=== PATIENT | female | born 2000 | race Hispanic/Latino ===

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

== ENCOUNTER 2020-12-15 08:19 | Emergency (ER) | payer MEDICAID ==
[~2020-12-15] VITALS: Ht 152.4 cm; Wt 68.9 kg
[2020-12-15 08:30] VITALS: BP 129/64
[2020-12-15 09:07] LABS: APPEARANCE,URINE Turbid (CLEAR); BILIRUBIN,URINE Negative (NEGATIVE); COLOR,URINE Yellow (YELLOW); GLUCOSE, URINE (UA) Negative (NEGATIVE); KETONES,URINE Negative (NEGATIVE); LEUKOCYTE ESTERASE ,URINE Large (NEGATIVE); NITRATE,URINE Negative (NEGATIVE); OCCULT BLOOD,URINE Large (NEGATIVE); PH,URINE 5.5 (5.0-8.0); PROTEIN,URINE POS 1+ mg/dL (NEGATIVE)
[2020-12-15 09:16] LABS: BACTERIA,URINE Rare /HPF (None Seen); RBC,URINE 26-50 /HPF (0-1); SQUAMOUS EPITHELIAL CELL,UR Few /HPF (0-2)
[2020-12-15] MEDS ORDERED: CEPH500B PO (09:39)
[2020-12-15] MEDS ORDERED: META800T72 PO (09:39)
== END 2020-12-15 09:49 | disposition home or self-care (01) ==
LOC: EDH 08:19
DX: S39.012A Strain of muscle, fascia and tendon of lower back, initial encounter (principal); N39.0 Urinary tract infection, site not specified; X58.XXXA Exposure to other specified factors, initial encounter; Y93.89 Activity, other specified; Y92.89 Other specified places as the place of occurrence of the external cause; Y99.8 Other external cause status
CPT/HCPCS: 72100; 81001; 87088

== ENCOUNTER 2022-03-23 14:15 | Inpatient (IN) | payer MEDICAID, OTHER ==
[~2022-03-23] VITALS: Ht 154.9 cm; Wt 93.0 kg
[~2022-03-23 14:15] MED LIST: CEPH500B PO; META800T72 PO
[2022-03-23 17:32] LABS: BASOPHILS % (AUTO) 0.3 % (0.0-5.0); EOSINOPHILS % (AUTO) 0.5 % (0.0-8.0); HEMATOCRIT 38.6 % (36-48); LYMPHOCYTES % (AUTO) 11.3 % (21.0-51.0); MEAN CORPUSCULAR HEMOGLOBIN 22.6 pg (27.0-33.0); MEAN CORPUSCULAR HGB CONC 30.8 g/dL (32.0-36.0); MEAN CORPUSCULAR VOLUME 73.2 fL (79-99); MONOCYTES % (AUTO) 7.7 % (3.0-13.0); NEUTROPHILS % (AUTO) 79.5 % (40.0-77.0); PLATELET COUNT (AUTO) 469 K/uL (130-400); RED BLOOD CELL COUNT(AUTO) 5.27 MIL/uL (4.00-5.50); RED CELL DISTRIBUTION WIDTH 17.4 % (11.0-15.5); WHITE BLOOD COUNT (AUTO) 18.3 K/uL (4.8-10.8)
[2022-03-23 17:41] LABS: CREATININE 0.8 mg/dL (0.5-1.5); POTASSIUM 3.7 mmol/L (3.5-5.1)
[2022-03-23 17:45] LABS: ALBUMIN 3.2 g/dL (3.5-5.0); TOTAL PROTEIN, SERUM 8.2 g/dL (6.0-8.3)
[2022-03-23 18:16] LABS: APPEARANCE,URINE CLOUDY (CLEAR); BILIRUBIN,URINE NEGATIVE (NEGATIVE); COLOR,URINE YELLOW (YELLOW); GLUCOSE, URINE (UA) NEGATIVE (NEGATIVE); KETONES,URINE 10 mg/dL (NEGATIVE); LEUKOCYTE ESTERASE ,URINE 25 Leu/uL (NEGATIVE); NITRATE,URINE NEGATIVE (NEGATIVE); OCCULT BLOOD,URINE NEGATIVE (NEGATIVE); PROTEIN,URINE 50 mg/dL (NEGATIVE)
[2022-03-23 18:31] LABS: HCG,QUALITATIVE URINE NEGATIVE (NEGATIVE)
[2022-03-23 18:35] LABS: BACTERIA,URINE MOD /HPF (None Seen); MUCUS,URINE FEW LPF (None Seen); OTHER CASTS, URINE 1 /LPF (None Seen); SQUAMOUS EPITHELIAL CELL,UR MANY /HPF (0-2)
[2022-03-23] MEDS ORDERED: ZOSYN 3.375GM +NS 50ML IVPB ONE (20:30)
[2022-03-24] MEDS ORDERED: ACETAMINOPHEN 325 MG TAB PO PRN ×2
[2022-03-24] MEDS: 0.9%NACL 1000ML 1,000 ML IV SCH ×3 (00:46→20:17)
[2022-03-24 05:05] VITALS: BP 113/58
[2022-03-24] MEDS: ZOSYN 3.375GM+NS 50ML 50 ML IVPB SCH ×3 (05:14→20:17)
[2022-03-24 07:20] LABS: HEMATOCRIT 30.2 % (36-48); MEAN CORPUSCULAR HGB CONC 30.8 g/dL (32.0-36.0); MEAN CORPUSCULAR VOLUME 74.6 fL (79-99); PLATELET COUNT (AUTO) 368 K/uL (130-400); RED BLOOD CELL COUNT(AUTO) 4.05 MIL/uL (4.00-5.50); RED CELL DISTRIBUTION WIDTH 17.2 % (11.0-15.5); WHITE BLOOD COUNT (AUTO) 12.2 K/uL (4.8-10.8)
[2022-03-24 08:00] VITALS: BP 106/47
[2022-03-24 08:03] LABS: EOSINOPHILS % (MANUAL) 3 % (1-6); LYMPHOCYTES % (MANUAL) 13 % (22-44); MAN.DIFF COMMENT-IMPRESSION MANUAL DIFFERENTIAL; MONOCYTES % (MANUAL) 3 % (2-9); PLATELET MORPHOLOGY COMMENT ADEQUATE; SEGMENTED NEUTROPHILS % 81 % (40-70)
[2022-03-24] MEDS ORDERED: MAGNESIUM 2GM PREMIX 50ML 50 ML IV PRN (09:00)
[2022-03-24] MEDS ORDERED: DIPHENHYDRAMINE HCL 25 MG CAPSULE PO PRN (09:00)
[2022-03-24] MEDS ORDERED: POTASSIUM CHLORIDE 20MEQ/100ML 100 ML IV PRN (09:00)
[2022-03-24] MEDS ORDERED: ONDANSETRON 4MG INJ IV PRN ×2 (09:00)
[2022-03-24] MEDS ORDERED: DiphenhydrAMINE HCL 50 MG/ML VIAL IV PRN (09:00)
[2022-03-24] MEDS ORDERED: HYDROCODONE/ACETAMINOPHEN 5/325 MG TAB PO PRN ×2 (09:00)
[2022-03-24] MEDS ORDERED: LACTULOSE 20 GM/30 ML UDCUP PO PRN (09:00)
[2022-03-24] MEDS ORDERED: MAG/ALUM/SIMETH 30 ML UDCUP PO PRN (09:00)
[2022-03-24] MEDS ORDERED: GUAIFENESIN-DM 200/20 MG 10 ML PO PRN (09:00)
[2022-03-24] MEDS: FAMOTIDINE 20MG VIAL IV SCH ×4 (09:00→20:17)
[2022-03-24] MEDS ORDERED: KCL 20 MEQ ERTAB PO PRN (09:00)
[2022-03-24] MEDS ORDERED: NITROGLYCERIN 0.4 MG SL TAB SL PRN (09:00)
[2022-03-24] MEDS ORDERED: LIDOCAINE HCL-MPF 1% 2ML VIAL IV PRN (09:00)
[2022-03-24] MEDS ORDERED: POTASSIUM CHLORIDE 10% ELIXIR 20 MEQ/15 ML UDCUP PO PRN (09:00)
[2022-03-24] MEDS ORDERED: HYDROMORPHONE 1 MG INJ IV PRN (09:00)
[2022-03-24] MEDS: ENOXAPARIN SODIUM 40 MG/0.4 ML SYRINGE SQ SCH (09:44)
[2022-03-24] MEDS: FAMOTIDINE 20MG TAB PO SCH ×2 (09:44→19:38)
[2022-03-24 11:37] VITALS: BP 114/50
[2022-03-24 16:00] VITALS: BP 111/49
[2022-03-24 20:00] VITALS: BP 111/57
[2022-03-25] VITALS: BP 111/77
[2022-03-25 04:00] VITALS: BP 103/52
[2022-03-25] MEDS: ZOSYN 3.375GM+NS 50ML 50 ML IVPB SCH ×2 (04:28→13:55)
[2022-03-25] MEDS: 0.9%NACL 1000ML 1,000 ML IV SCH ×2 (04:28→15:39)
[2022-03-25 06:16] LABS: BASOPHILS % (AUTO) 0.2 % (0.0-5.0); EOSINOPHILS % (AUTO) 2.6 % (0.0-8.0); HEMATOCRIT 34.6 % (36-48); LYMPHOCYTES % (AUTO) 19.8 % (21.0-51.0); MEAN CORPUSCULAR HEMOGLOBIN 22.5 pg (27.0-33.0); MEAN CORPUSCULAR HGB CONC 30.6 g/dL (32.0-36.0); MEAN CORPUSCULAR VOLUME 73.3 fL (79-99); MONOCYTES % (AUTO) 6.7 % (3.0-13.0); NEUTROPHILS % (AUTO) 70.1 % (40.0-77.0); PLATELET COUNT (AUTO) 532 K/uL (130-400); RED BLOOD CELL COUNT(AUTO) 4.72 MIL/uL (4.00-5.50); RED CELL DISTRIBUTION WIDTH 17.4 % (11.0-15.5); WHITE BLOOD COUNT (AUTO) 9.9 K/uL (4.8-10.8)
[2022-03-25 06:33] LABS: CREATININE 0.6 mg/dL (0.5-1.5); MAGNESIUM 2.1 mg/dL (1.80-2.40); PHOSPHORUS 3.4 mg/dL (2.5-4.9); POTASSIUM 3.6 mmol/L (3.5-5.1)
[2022-03-25 08:00] VITALS: BP 113/40
[2022-03-25] MEDS: FAMOTIDINE 20MG VIAL IV SCH ×2 (08:44→08:45)
[2022-03-25] MEDS: FAMOTIDINE 20MG TAB PO SCH (08:44)
[2022-03-25] MEDS: ENOXAPARIN SODIUM 40 MG/0.4 ML SYRINGE SQ SCH (08:45)
[2022-03-25 12:00] VITALS: BP 112/61
[2022-03-25] MEDS ORDERED: METR-172 PO (18:13)
[2022-03-25] MEDS ORDERED: LEVO750T39 PO (18:13)
== END 2022-03-25 18:50 | disposition home or self-care (01) | DRG 254 ==
LOC: EDH 14:15 → EDHIP 14:16 → 3CH 03-24 05:06
PROVIDERS: ADMIT Hospitalist; ATTEND Hospitalist
DX: K35.80 Unspecified acute appendicitis (principal); K50.00 Crohn's disease of small intestine without complications; N39.0 Urinary tract infection, site not specified
CPT/HCPCS: 36415; 74176; 80048; 80053; 81001; 81025; 83540; 83550; 83690; 83735; 84100; 85025; 87040; 87088; G0378; J1650; J2543; J3490; J7030

== ENCOUNTER 2023-06-25 22:36 | Emergency (ER) | payer MEDICAID, OTHER ==
[~2023-06-25] VITALS: Ht 154.9 cm; Wt 99.3 kg
[~2023-06-25 22:36] MED LIST changes: -CEPH500B PO; +LEVO750T39 PO; -META800T72 PO; +METR-172 PO
[2023-06-25] MEDS: ONDANSETRON 4MG INJ IVP ONE (23:42)
[2023-06-25] MEDS: PANTOPRAZOLE 40 MG/VIAL IVP ONE (23:42)
[2023-06-25] MEDS: 0.9%NACL 1000ML 1,000 ML IV ONE (23:42)
[2023-06-26 00:31] LABS: CREATININE 0.8 mg/dL (0.5-1.0); POTASSIUM 3.8 mmol/L (3.5-5.1)
[2023-06-26 00:37] LABS: ALBUMIN 3.8 g/dL (3.5-5.0); BILIRUBIN,TOTAL 0.4 mg/dL (0.2-1.0); TOTAL PROTEIN, SERUM 7.9 g/dL (6.0-8.3)
[2023-06-26 00:38] LABS: BASOPHILS # (AUTO) 0.05 K/uL (0.00-0.20); BASOPHILS % (AUTO) 0.4 % (0.0-5.0); EOSINOPHILS # (AUTO) 0.11 K/uL (0.00-0.70); EOSINOPHILS % (AUTO) 0.8 % (0.0-8.0); HEMATOCRIT 43.4 % (36-48); IMMATURE GRANULOCYTE ABSOLUTE 0.08 K/uL (0-1); LYMPHOCYTES # (AUTO) 2.5 K/uL (1.0-4.8); LYMPHOCYTES % (AUTO) 17.7 % (21.0-51.0); MEAN CORPUSCULAR HEMOGLOBIN 27.7 pg (27.0-33.0); MEAN CORPUSCULAR HGB CONC 32.9 g/dL (32.0-36.0); MEAN CORPUSCULAR VOLUME 83.9 fL (79-99); MONOCYTES # (AUTO) 0.8 K/uL (0.1-1.0); NEUTROPHILS # (AUTO) 10.4 K/uL (1.8-7.7); NEUTROPHILS % (AUTO) 74.5 % (40.0-77.0); PLATELET COUNT (AUTO) 479 K/uL (130-400); RED BLOOD CELL COUNT(AUTO) 5.17 MIL/uL (4.00-5.50); RED CELL DISTRIBUTION WIDTH 13.9 % (11.0-15.5)
[2023-06-26 02:33] LABS: APPEARANCE,URINE CLOUDY (CLEAR); BILIRUBIN,URINE NEGATIVE (NEGATIVE); COLOR,URINE YELLOW (YELLOW); GLUCOSE, URINE (UA) NEGATIVE (NEGATIVE); KETONES,URINE NEGATIVE (NEGATIVE); LEUKOCYTE ESTERASE ,URINE NEGATIVE Leu/uL (NEGATIVE); NITRATE,URINE NEGATIVE (NEGATIVE); OCCULT BLOOD,URINE MODERATE (NEGATIVE); PH,URINE 5.5 (5.0-8.0); PROTEIN,URINE 20 mg/dL (NEGATIVE); UROBILINOGEN,URINE 0.2 mg/dL (0.2-1.0)
[2023-06-26 02:35] LABS: HCG,QUALITATIVE URINE NEGATIVE (NEGATIVE)
[2023-06-26 02:36] LABS: ADD UA MICROSCOPIC YES
[2023-06-26 02:37] LABS: BACTERIA,URINE RARE /HPF (None Seen); MUCUS,URINE FEW LPF (None Seen); SQUAMOUS EPITHELIAL CELL,UR MOD /HPF (0-2)
[2023-06-26] MEDS ORDERED: AMOX1TAB16 PO (03:17)
[2023-06-26 03:49] VITALS: BP 124/76; PULSE 72; RESP 18; O2SAT 99
== END 2023-06-26 03:51 | disposition home or self-care (01) ==
LOC: EDH 22:36
DX: K80.20 Calculus of gallbladder without cholecystitis without obstruction (principal); J32.9 Chronic sinusitis, unspecified; R11.0 Nausea; D72.829 Elevated white blood cell count, unspecified
CPT/HCPCS: 99285; 96374; 96375; 80053; 83690; 81001; 81025; 36415 ×2; 76705; J7030 ×2; J2405 ×2; C9113 ×2; 85025

== ENCOUNTER 2024-03-08 14:30 | Emergency (ER) | payer SELFPAY ==
[~2024-03-08] VITALS: Ht 154.9 cm; Wt 98.9 kg
[~2024-03-08 14:30] MED LIST changes: +AMOX1TAB16 PO; -LEVO750T39 PO; +LEVO750T40 PO
--- NOTE | 2024-03-08 14:38 | NUR ---
SEEN BY COLT CANALES BORING MACHINE OPERATOR AT TRIAGE
--- NOTE | 2024-03-08 14:45 | ERN ---
ED Note History of Present Illness Stated Complaint: VOMITTING,BODY ACHES,DIZZY, DIARRHEA Chief Complaint: Syncope Time Seen by MD: 14:33 Dictation: PATIENT IS A 24-YEAR-OLD FEMALE COMING IN TODAY WITH COMPLAINTS OF NAUSEA AND VOMITING ONSET AT 08:00 O'CLOCK THIS MORNING SHE ALSO STATES WHILE SHE WAS VOMITING, SHE GOT DIZZY FELL AND HER UNCLE PICKED HER UP AND BROUGHT HER TO THE EMERGENCY ROOM. SHE HAS NOT HAVE ANY CHEST PAIN, HEADACHE. SHE STATES SHE IS HAVING SOME LEFT SHOULDER PAIN. SHE HAS NO ABDOMINAL PAIN AT THIS TIME STATES SHE HAS NO PRIMARY CARE DOCTOR. Allergies: Coded Allergies: No Known Allergies (Unverified Allergy, Unknown, 03/23/22) Home Meds Active Scripts Ibuprofen (Ibuprofen 800 mg Tab) 800 Mg Tab, 800 MG PO Q8H PRN for fever or pain, #30 TAB 0 Refills Prov:COLT MORAN NP 03/08/24 Ondansetron (Ondansetron Odt) 4 Mg Tab.rapdis, 4 MG PO Q6HPRN PRN for nausea, #16 TAB 0 Refills Prov:COLT MORAN NP 03/08/24 Dicyclomine HCl (Bentyl) 20 Mg Tab, 20 MG PO Q6HPRN PRN for Abdominal cramping, #20 TAB Prov:COLT MORAN NP 03/08/24 Amoxicillin/Potassium Clav (Amox Tr-K Clv 875-125 mg Tab) 875 Mg-125 Mg Tablet, 1 EACH PO BID for 5 Days, #10 TAB 0 Refills Prov:SIVAN HAYS MD 06/26/23 Metronidazole (Metronidazole) 500 Mg Tablet, 500 MG PO TID for 7 Days, #21 TAB 0 Refills Prov:IESHA YO MD 03/25/22 Levofloxacin (Levofloxacin) 750 Mg Tablet, 750 MG PO DAILY, #7 TAB 0 Refills Prov:IESHA YO MD 03/25/22 Past Medical History Past Medical History: No Pertinent History Surgical History: Social History: Other History: Not Applicable RN Note Reviewed/Agreed w/PFSH: Yes Review of System Dictation CONSTITUTIONAL: NEGATIVE EXCEPT FOR HPI HEAD/FACE: NEGATIVE EXCEPT FOR HPI EENT: NEGATIVE EXCEPT FOR HPI RESPIRATORY: NEGATIVE EXCEPT FOR HPI GASTROINTESTINAL/ABDOMINAL: NEGATIVE EXCEPT FOR HPI NAUSEA VOMITING AND DIARRHEA GENITOURINARY: NEGATIVE EXCEPT FOR HPI MUSCULOSKELETAL: NEGATIVE EXCEPT FOR HPI INTEGUMENTARY: NEGATIVE EXCEPT FOR HPI NEUROLOGICAL/PSYCH: NEGATIVE EXCEPT FOR HPI NEAR-SYNCOPE HEMATOLOGIC/LYMPHATIC: NEGATIVE EXCEPT FOR HPI ALL SYSTEMS NEGATIVE, EXCEPT NOTED ABOVE. 13 POINT REVIEW OF SYSTEMS ASSESSED AND ALL NEGATIVE EXCEPT FOR ABOVE. Initial Vital Sign VS Vital Signs Date Time Temp Pulse Resp B/P (MAP) Pulse Ox O2 Delivery O2 Flow Rate FiO2 03/08/24 14:34 98.2 89 18 113/71 98 Room Air 03/08/24 22:11 0 21 Physical Exam Dictation VITAL SIGNS REVIEWED GENERAL APPEARANCE: ALERT, ORIENTED X 3, MILD ACUTE DISTRESS, WELL DEVELOPED, NOURISHED. HEAD AND FACE: NON-TRAUMATIC. EYES: PERRL, PINK CONJUNCTIVAS, EYELID NO TRAUMA, ANTERIOR CHAMBER WITH ARCUS SENILIS. EARS: PINNAS INTACT AND NO SIGNS OF TRAUMA OR ERYTHEMA EAR CANALS CLEAR AND NO DISCHARGE TM NO ERYTHEMA NOSE: NO DISCHARGE, NO BLEEDING. OROPHARYNX: MOUTH NORMAL, TONGUE PINK, PHARYNX CLEAR,NO ERYTHEMA, TONSILS NO EXUDATES, NO ABSCESSES NOTED, MUCOUS MEMBRANE MOIST NECK: SUPPLE, NON-TENDER, NO THYROMEGALY, NO MASSES, NO JVD, NO BRUITS BREAST:DEFERRED CHEST:NO TENDERNESS, NO CREPITUS, NO PARADOXICAL MOVEMENT, NO RETRACTIONS LUNGS:CLEAR, WELL-VENTILATED, SYMMETRIC, NO RALES, NO WHEEZING, NO RHONCHI, NO STRIDOR, GOOD BREATH SOUNDS BILATERALLY HEART: REGULAR RATE, REGULAR RHYTHM, NO MURMUR, NO GALLOPS VASCULAR: NO PERIPHERAL EDEMA, ABDOMEN: SOFT, POSITIVE BOWEL SOUNDS, NONDISTENDED, NO GUARDING, NONTENDER, NO REBOUND, NO MASSES NO HEPATOMEGALY, NO SPLENOMEGALY, NO PEREZ'S SIGN, NO HERNIAS. RECTAL: DEFERRED GENITAL: DEFERRED NEUROLOGICAL: NORMAL SPEECH, MOTOR FUNCTION INTACT, SENSORY FUNCTION INTACT MUSCULOSKELETAL: NECK NONTENDER, FULL RANGE OF MOTION, BACK NONTENDER, FULL RANGE OF MOTION, EXTREMITIES: LEFT ANTERIOR SHOULDER PAIN TENDERNESS WITH A ECCHYMOSIS. DECREASED RANGE OF MOTION SECONDARY TO PAIN SKIN: COLOR PINK, DRY, NO TURGOR, NO RASH, NO LACERATIONS, NO ABRASIONS, NO CONTUSIONS. LYMPHATIC: DEFERRED Results (Laboratory/Radiology) Laboratory/Radiology Laboratory Tests Test 03/08/24 14:52 03/08/24 22:10 White Blood Count 23.4 K/uL (4.8-10.8) H Red Blood Count 5.34 MIL/uL (4.00-5.50) Hemoglobin 14.9 g/dL (12.0-16.0) Hematocrit 46.2 % (36-48) Mean Corpuscular Volume 86.5 fL (79-99) Mean Corpuscular Hemoglobin 27.9 pg (27.0-33.0) Mean Corpuscular Hemoglobin Concent 32.3 g/dL (32.0-36.0) Red Cell Distribution Width 14.1 % (11.0-15.5) Platelet Count 534 K/uL (130-400) H Mean Platelet Volume 8.2 fL (7.5-10.5) Immature Granulocyte % (Auto) 0.6 % (0-1) Neutrophils (%) (Auto) 90.1 % (40.0-77.0) H Lymphocytes (%) (Auto) 5.1 % (21.0-51.0) L Monocytes (%) (Auto) 3.8 % (3.0-13.0) Eosinophils (%) (Auto) 0.1 % (0.0-8.0) Basophils (%) (Auto) 0.3 % (0.0-5.0) Neutrophils # (Auto) 21.1 K/uL (1.8-7.7) H Lymphocytes # (Auto) 1.2 K/uL (1.0-4.8) Monocytes # (Auto) 0.9 K/uL (0.1-1.0) Eosinophils # (Auto) 0.02 K/uL (0.00-0.70) Basophils # (Auto) 0.07 K/uL (0.00-0.20) Absolute Immature Granulocyte (auto 0.13 K/uL (0-1) Nucleated Red Blood Cells 0.0 % (0.0-0.19) White Cell Morphology Comment See comments Sodium Level 142 mmol/L (136-145) Potassium Level 4.3 mmol/L (3.5-5.1) Chloride Level 105 mmol/L (101-111) Carbon Dioxide Level 32 mmol/L (21-32) Blood Urea Nitrogen 12 mg/dL (7-18) Creatinine 0.9 mg/dL (0.5-1.0) Glomerular Filtration Rate Calc 91 mL/min (>90) Random Glucose 117 mg/dL (70-105) H Total Calcium 9.1 mg/dL (8.5-10.1) Troponin I High Sensitivity < 4 ng/L (4-50) L Lipase 21 U/L (16-77) Serum Test, Qualitative NEGATIVE (NEGATIVE) Urine Color YELLOW (YELLOW) Urine Appearance CLOUDY (CLEAR) H Urine pH 5.5 (5.0-8.0) Urine Specific [place] 1.028 (1.001-1.031) Urine Protein 10 mg/dL (NEGATIVE) H Urine Glucose (UA) NEGATIVE mg/dL (NEGATIVE) Urine Ketones NEGATIVE mg/dL (NEGATIVE) Urine Occult Blood SMALL (NEGATIVE) H Urine Nitrate NEGATIVE (NEGATIVE) Urine Bilirubin NEGATIVE mg/dL (NEGATIVE) Urine Urobilinogen 0.2 mg/dL (0.2-1.0) Urine Leukocyte Esterase 250 Angela/uL (NEGATIVE) H Urine RBC 6-10 /HPF (0-1) H Urine WBC 26-50 /HPF (0-1) H Urine Squamous Epithelial Cells MANY /HPF (0-2) Urine Bacteria RARE /HPF (None Seen) LEFT SHOULDER RADIOGRAPHS - 2-3 VIEWS INDICATION: Pain COMPARISON: None FINDINGS: No evidence for acute fracture or dislocation. Acromioclavicular and glenohumeral alignments are well maintained. Visible portions of the left clavicle are intact. IMPRESSION: No evidence for fracture or dislocation. Labs Reviewed?: Yes EKG: (+) NSR EKG Comment: EKG NORMAL SINUS RHYTHM/HEART RATE 83/AXIS NORMAL/NO ECTOPY ED Course ED Course Orders Procedure Category Date Status Time Testing, LAB 03/08/24 Complete Serum Hcg 14:42 Cbc With Differential LAB 03/08/24 Complete 14:42 Troponin I High LAB 03/08/24 Complete Sensitivity 14:42 Urinalysis Profile LAB 03/08/24 Complete 14:42 12 Lead Ekg Tracing- EKG 03/08/24 Resulted Technical 14:42 0.9%Nacl 1000ml (Ns PHA 03/08/24 Complete 1000ml) 15:00 Ondansetron 4mg Inj PHA 03/08/24 Complete (Zofran 4mg Inj) 15:00 Lipase LAB 03/08/24 Complete 14:42 Basic Metabolic Panel LAB 03/08/24 Complete 14:42 Shoulder Comp 2+Vws Lt RAD 03/08/24 Resulted 15:32 Culture Urine KRUPA 03/08/24 In Process 22:27 Current Medications Medications (Trade) Dose Ordered Sig/Christian Route PRN Reason Start Time Stop Time Status Last Admin Dose Admin Ondansetron HCl (zoFRAN 4MG INJ) 4 mg ONCE ONCE IVP 03/08/24 15:00 03/08/24 15:01 DC Sodium Chloride 1,000 ml @ 0 mls/hr ONCE ONCE IV 03/08/24 15:00 03/08/24 15:01 DC Vital Signs Date Time Temp Pulse Resp B/P (MAP) Pulse Ox O2 Delivery O2 Flow Rate FiO2 03/08/24 22:11 98.2 85 16 115/70 98 Room Air* 0 21 03/08/24 14:34 98.2 89 18 113/71 98 Room Air 2030 patient will be discharged home after fluids and antiemetics patient will be treated for viral gastroenteritis, believe that the leukocytosis is reactive. No abdominal pain. HEART Score Response (Comments) Value History: Low suspicion (0) 0 EKG: Normal 0 Age: < 45yrs (0) 0 Risk Factors: No known risk factors (0) 0 Initial Troponin: Normal limit (0) 0 Total 0 Medical Decision Making MDM MDM: Differential diagnosis: ACS/AMI/electrolyte imbalance/dehydration/syncope lash shoulder contusion/fracture/gastroenteritis Rationale: Tests considered and ordered secondary to shared decision making include: Radiology/labs/EKG Previous outside records reviewed: Old ER visits. Risk of complication and/or morbidity or mortality of patient management: None Medications-Per medication reconciliation Need for hospitalization: Patient does not meet criteria for hospitalization. No Need for emergency major/minor surgery: No There are no social concerns with this patient. Prescription drug management Zofran/Bentyl Prescriptions will include symptomatic care Patient's prior external medical records from other ER visits were reviewed by me as indicated. Prior testing and results from previous visits were reviewed. Prior tests were taken into account with medical decision making and resource utilization, independent historian/historians were used to obtain complete medical history. I independently interpreted the test that were performed, results were reviewed by me and considered findings on radiology if ordered. Medical management and examination interpretation discussions were had by me with other qualified healthcare professionals as indicated for the patient's care. DX & DISP Disposition: Discharge Departure Impression: Primary Impression: Viral gastroenteritis Additional Impressions: Nausea & vomiting, Contusion of left shoulder, initial encounter, Vasovagal syncope Condition: Stable Scripts Ibuprofen (Ibuprofen 800 mg Tab) 800 Mg Tab 800 MG PO Q8H PRN for fever or pain, #30 TAB 0 Refills Prov: COLT MORAN LEAD ACCOUNTANT 03/08/24 Ondansetron (Ondansetron Odt) 4 Mg Tab.rapdis 4 MG PO Q6HPRN PRN for nausea, #16 TAB 0 Refills Prov: COLT MORAN LEAD ACCOUNTANT 03/08/24 Dicyclomine HCl (Bentyl) 20 Mg Tab 20 MG PO Q6HPRN PRN for Abdominal cramping, #20 TAB Prov: COLT MORAN LEAD ACCOUNTANT 03/08/24 Additional Instructions: Follow-up with primary care provider in 1 to 2 days. Take medications as directed here in the emergency room. Okay to continue home medications unless otherwise discussed during your visit in the emergency room today. Return to your nearest emergency room if symptoms worsen or if there is no improvement. Call 911 if you need immediate assistance. Take Tylenol or Motrin [id number] as needed and if no contraindications are present. Increase oral hydration. A wound culture or urine culture was ordered here in the emergency room department please follow-up with primary care provider and advise them to get repeat ports from our facility. If you had any Kel wrap/splints that were applied here, please do not remove them until you see your primary care or specialty. Cool compresses to left shoulder three to 4 times a day. Suggest sips of Gatorade or Powerade every 20 minutes while awake. Take Bentyl and Zofran as directed for cramping and/or vomiting. Follow up with your primary care doctor in 1-2 days. No solid foods until tomorrow afternoon. Referrals: KARY RAYMUNDO MD (PCP) Time of Disposition: 20:35 I have reviewed the case, and I agree with, Diagnosis and Plan I performed the substantive portion of the visit. I have reviewed and personally made and approve the management plan that is documented in the notes by myself or the OMA. I acknowledge full responsibility for the patient's management plan. COLT MORAN NP Mar 08, 2024 14:45 SOWMYA BOB MD Mar 09, 2024 16:58
[2024-03-08] MEDS: ondanSETRON 4MG INJ IVP ONE (15:00)
[2024-03-08] MEDS: 0.9%NACL 1000ML 1,000 ML IV ONE (15:00)
[2024-03-08 15:03] LABS: BASOPHILS # (AUTO) 0.07 K/uL (0.00-0.20); BASOPHILS % (AUTO) 0.3 % (0.0-5.0); EOSINOPHILS # (AUTO) 0.02 K/uL (0.00-0.70); EOSINOPHILS % (AUTO) 0.1 % (0.0-8.0); HEMATOCRIT 46.2 % (36-48); IMMATURE GRANULOCYTE ABSOLUTE 0.13 K/uL (0-1); LYMPHOCYTES # (AUTO) 1.2 K/uL (1.0-4.8); LYMPHOCYTES % (AUTO) 5.1 % (21.0-51.0); MEAN CORPUSCULAR HEMOGLOBIN 27.9 pg (27.0-33.0); MEAN CORPUSCULAR HGB CONC 32.3 g/dL (32.0-36.0); MEAN CORPUSCULAR VOLUME 86.5 fL (79-99); MONOCYTES # (AUTO) 0.9 K/uL (0.1-1.0); MONOCYTES % (AUTO) 3.8 % (3.0-13.0); NEUTROPHILS # (AUTO) 21.1 K/uL (1.8-7.7); NEUTROPHILS % (AUTO) 90.1 % (40.0-77.0); PLATELET COUNT (AUTO) 534 K/uL (130-400); RED BLOOD CELL COUNT(AUTO) 5.34 MIL/uL (4.00-5.50); RED CELL DISTRIBUTION WIDTH 14.1 % (11.0-15.5); WHITE BLOOD COUNT (AUTO) 23.4 K/uL (4.8-10.8)
[2024-03-08 15:31] LABS: CREATININE 0.9 mg/dL (0.5-1.0); POTASSIUM 4.3 mmol/L (3.5-5.1)
--- NOTE | 2024-03-08 16:16 | HMCIMG ---
LEFT SHOULDER RADIOGRAPHS - 2-3 VIEWS INDICATION: Pain COMPARISON: None FINDINGS: No evidence for acute fracture or dislocation. Acromioclavicular and glenohumeral alignments are well maintained. Visible portions of the left clavicle are intact. IMPRESSION: No evidence for fracture or dislocation.
--- NOTE | 2024-03-08 16:57 | EKG ---
[facility] Test Date: 2024-03-08 Test Time: 15:22:08 Pat Name: LEIGHTON HOUSTON Department: ED Room: Gender: F Regional Director: [id number] : 2000 Requested By: COLT MORAN Order Number: [id number] Reading MD: Sherry Stewart Measurements Intervals [place] Rate: 83 P: 6 MS: 124 QRS: 8 QRSD: 88 T: 8 QT: 370 QTc: 435 Interpretive Statements Sinus rhythm No previous ECG available for comparison Electronically Signed On 03-09-2024 16:08:23 ASSURANCE MANAGER by Sherry Stewart Please click the below link to view image of tracing.
[2024-03-08] MEDS ORDERED: DICY20TA2 PO (20:37)
[2024-03-08] MEDS ORDERED: IBUP-2077 PO (20:37)
[2024-03-08] MEDS ORDERED: ONDA-243 PO (20:37)
[2024-03-08 22:11] VITALS: BP 115/70; PULSE 85; RESP 16; TEMP 98.3; O2SAT 98
--- NOTE | 2024-03-08 22:17 | NUR ---
PT [id number] IN FT AT 2150
--- NOTE | 2024-03-08 22:20 | NUR ---
PT REFUSED MEDICATION AND CHOOSED TO USE RX PROVIDED FOR HOME NO NAUSEA OR VISABLE DISTRESS AT THIS TIME
[2024-03-08 22:24] LABS: APPEARANCE,URINE CLOUDY (CLEAR); BILIRUBIN,URINE NEGATIVE (NEGATIVE); COLOR,URINE YELLOW (YELLOW); GLUCOSE, URINE (UA) NEGATIVE (NEGATIVE); KETONES,URINE NEGATIVE (NEGATIVE); LEUKOCYTE ESTERASE ,URINE 250 Leu/uL (NEGATIVE); NITRATE,URINE NEGATIVE (NEGATIVE); OCCULT BLOOD,URINE SMALL (NEGATIVE); PH,URINE 5.5 (5.0-8.0); PROTEIN,URINE 10 mg/dL (NEGATIVE); UROBILINOGEN,URINE 0.2 mg/dL (0.2-1.0)
[2024-03-08 22:26] LABS: ADD UA MICROSCOPIC YES
[2024-03-08 22:29] LABS: BACTERIA,URINE RARE /HPF (None Seen); MUCUS,URINE RARE LPF (None Seen); SQUAMOUS EPITHELIAL CELL,UR MANY /HPF (0-2); WBC,URINE 26-50 /HPF (0-1)
== END 2024-03-08 22:25 | disposition home or self-care (01) ==
LOC: EDH 14:30
DX: A08.4 Viral intestinal infection, unspecified (principal); S40.012A Contusion of left shoulder, initial encounter; R55 Syncope and collapse; Z79.899 Other long term (current) drug therapy; Z98.890 Other specified postprocedural states; W18.39XA Other fall on same level, initial encounter; Y93.89 Activity, other specified; Y92.89 Other specified places as the place of occurrence of the external cause; Y99.8 Other external cause status
CPT/HCPCS: 36415; 73030; 80048; 81001; 83690; 84484; 84703; 85025; 87086; 93005; 99285

== ENCOUNTER 2024-08-13 23:06 | Emergency (ER) | payer BC ==
[~2024-08-13] VITALS: Ht 154.9 cm; Wt 94.3 kg
[~2024-08-13 23:06] MED LIST changes: +DICY20TA2 PO; +IBUP-2077 PO; -LEVO750T40 PO; +LEVO750T90 PO; +ONDA-243 PO
--- NOTE | 2024-08-13 23:50 | HMCIMG ---
EXAM: CR right ankle, 3 View. CLINICAL HISTORY: fall COMPARISON: None provided. FINDINGS: BONES: No acute fracture or aggressive appearing osseous lesion. JOINTS: The joint spaces appear within normal limits. No dislocation. Small ankle joint effusion. SOFT TISSUES: Mild soft tissue edema at the lateral malleolus. IMPRESSION: 1. No acute osseous injury. 2. Small ankle joint effusion with mild lateral malleolar soft tissue edema. /[place]
--- NOTE | 2024-08-13 23:51 | HMCIMG ---
EXAM: CR right foot, 4 View. CLINICAL HISTORY: fall COMPARISON: None provided. FINDINGS: BONES: No acute fracture or aggressive appearing osseous lesion. JOINTS: The joint spaces appear within normal limits. No dislocation. SOFT TISSUES: The soft tissues are unremarkable. IMPRESSION: No acute osseous abnormality. /[place]
--- NOTE | 2024-08-14 00:30 | ERN ---
General Chief Complaint: Ankle Problem Stated Complaint: C/O PAIN TO RIGHT ANKLE/FOOT AFTER FALL Time Seen by MD: 23:15 Time Seen by Midlevel: 23:15 Source: patient History of Present Illness Initial Comments The patient is a 24-year-old female presenting to the emergency department with right foot/ankle pain after falling. Denies any other symptoms or injury Allergies: Coded Allergies: No Known Allergies (Unverified Allergy, Unknown, 03/23/22) Home Meds Active Scripts Ibuprofen (Ibuprofen 800 mg Tab) 800 Mg Tab, 800 MG PO Q8H PRN for fever or pain, #30 TAB 0 Refills Prov:COLT MORAN DETAIL ASSEMBLER 03/08/24 Ondansetron (Ondansetron Odt) 4 Mg Tab.rapdis, 4 MG PO Q6HPRN PRN for nausea, #16 TAB 0 Refills Prov:COLT MORAN DETAIL ASSEMBLER 03/08/24 Dicyclomine HCl (Bentyl) 20 Mg Tab, 20 MG PO Q6HPRN PRN for Abdominal cramping, #20 TAB Prov:COLT MORAN DETAIL ASSEMBLER 03/08/24 Amoxicillin/Potassium Clav (Amox Tr-K Clv 875-125 mg Tab) 875 Mg-125 Mg Tablet, 1 EACH PO BID for 5 Days, #10 TAB 0 Refills Prov:SIVAN HAYS MD 06/26/23 Metronidazole (Metronidazole) 500 Mg Tablet, 500 MG PO TID for 7 Days, #21 TAB 0 Refills Prov:IESHA YO MD 03/25/22 Levofloxacin (Levofloxacin) 750 Mg Tablet, 750 MG PO DAILY, #7 TAB 0 Refills Prov:IESHA YO MD 03/25/22 Past Medical History Past Medical History: No Pertinent History Past Surgical History: Social History Social History: Other Female( History) History: Not Applicable LMP: Aug 05, 2024 ROS Dictation CONSTITUTIONAL: Negative except for HPI HEAD/FACE: Negative except for HPI EENT: Negative except for HPI RESPIRATORY: Negative except for HPI GASTROINTESTINAL/ABDOMINAL: Negative except for HPI GENITOURINARY: Negative except for HPI MUSCULOSKELETAL: Negative except for HPI INTEGUMENTARY: Negative except for HPI NEUROLOGICAL/PSYCH: Negative except for HPI HEMATOLOGIC/LYMPHATIC: Negative except for HPI All Systems Negative, Except as noted above. 13 point review of systems assessed and all negative except for above. Physical Exam Physical Exam Dictation Vital Signs reviewed General Appearance: Alert, oriented x 3, no acute distress, well developed, nourished. Head and Face: non-traumatic. Eyes: PERRL, pink conjunctivas, eyelid no trauma, anterior chamber with arcus senilis. Ears: Pinnas intact and no signs of trauma or erythema ear canals clear and no discharge TM no erythema Nose: No discharge, no bleeding. Oropharynx: Mouth normal, tongue pink, pharynx clear,no erythema, tonsils no exudates, no abscesses noted, mucous membrane moist Neck: Supple, non-tender, no thyromegaly, no masses, no JVD, no bruits Breast:Deferred Chest:No tenderness, no crepitus, no paradoxical movement, no retractions Lungs:Clear, well-ventilated, symmetric, no rales, no wheezing, no rhonchi, no stridor, good breath sounds bilaterally Heart: Regular rate, regular rhythm, no murmur, no gallops Vascular: no peripheral edema, Abdomen: Soft, positive bowel sounds, nondistended, no guarding, nontender, no rebound, no masses no hepatomegaly, no splenomegaly, no Beltran's sign, no hernias. Rectal: Deferred Genital: Deferred Neurological: Normal speech, motor function intact, sensory function intact Musculoskeletal: Neck nontender, full range of motion, back nontender, full range of motion, Extremities: nontender, full range of motion Skin: Color pink, dry, no turgor, no rash, no lacerations, no abrasions, no contusions. Lymphatic: Deferred MDM MDM: Differential diagnosis: Ankle sprain, ankle fracture, ankle dislocation There are no social concerns with this patient. Prescription drug management Prescriptions will include: None Medical management and examination interpretation discussions were had by me with other qualified healthcare professionals as indicated for the patient's care. ED Course Orders Procedure Category Date Status Time Foot Comp 3+Vws Rt RAD 08/13/24 Resulted 23:15 Ankle Comp 3vws Rt RAD 08/13/24 Resulted 23:15 Crutches DUNIA 08/14/24 In Process 00:16 Vital Signs Date Time Temp Pulse Resp B/P (MAP) Pulse Ox O2 Delivery O2 Flow Rate FiO2 08/13/24 23:07 98.1 76 20 131/83 97 Room Air DX & DISP Disposition: Discharge Departure Impression: Primary Impression: Right ankle sprain Condition: Stable Additional Instructions: Your x-ray does not show any evidence of an acute fracture or dislocation. Please follow up with your primary care doctor in 2-3 days for repeat evaluation. You may take Tylenol and Motrin as needed for pain. Referrals: ASIA MURDOCK MD (PCP) Time of Disposition: 00:29 I have reviewed the case, and I agree with, Diagnosis and Plan I performed the substantive portion of the visit. I have reviewed and personally made and approve the management plan that is documented in the note by myself or the OMA. I acknowledge for responsibility for the patient's management plan. KELLEY MURDOCK Aug 14, 2024 00:30
[2024-08-14 00:59] VITALS: BP 128/85; PULSE 76; RESP 18; TEMP 98.4; O2SAT 98
== END 2024-08-14 01:02 | disposition home or self-care (01) ==
LOC: EDH 23:06
DX: S93.401A Sprain of unspecified ligament of right ankle, initial encounter (principal); Z79.899 Other long term (current) drug therapy; Z98.890 Other specified postprocedural states; W18.39XA Other fall on same level, initial encounter; Y93.89 Activity, other specified; Y92.89 Other specified places as the place of occurrence of the external cause; Y99.8 Other external cause status
CPT/HCPCS: 73610; 73630; 99283